=== PATIENT | female | born 1965 ===

== ENCOUNTER 2021-05-19 12:45 | Inpatient (IN) | payer OTHER ==
[~2021-05-19] VITALS: Ht 157.5 cm; Wt 66.7 kg
[2021-05-19] MEDS ORDERED: ZETIA10 MG PO (15:12)
[2021-05-19] MEDS ORDERED: HYZAAR 100-12.1 EACH PO (15:12)
== END 2021-05-23 11:12 | disposition home or self-care (01) | DRG 741 ==
LOC: O/R 05-21 07:24 → OB/GYN 05-21 12:45
PROVIDERS: ADMIT Specialist; ATTEND Specialist
PROC: 0UT24ZZ Resection of Bilateral Ovaries, Percutaneous Endoscopic Approach (ICD-10-PCS; 2021-05-21)
PROC: 0UT74ZZ Resection of Bilateral Fallopian Tubes, Percutaneous Endoscopic Approach (ICD-10-PCS; 2021-05-21)
PROC: 07BC4ZZ Excision of Pelvis Lymphatic, Percutaneous Endoscopic Approach (ICD-10-PCS; 2021-05-21)
PROC: 0UT94ZZ Resection of Uterus, Percutaneous Endoscopic Approach (ICD-10-PCS; principal; 2021-05-21 17:30)
DX: C54.1 Malignant neoplasm of endometrium (principal)